=== PATIENT | female | born 1940 | race Caucasian/White ===

== ENCOUNTER → 2016-12-05 | Outpatient (CLI) | payer OTHER ==
[2016-12-05 09:54] LABS: ASPARTATE AMINO TRANSFERASE 32 IU/L (8-39); BILIRUBIN,TOTAL 0.5 mg/dL (0.3-1.2); BLOOD UREA NITROGEN 17 mg/dL (7-22); CHLORIDE 100 meq/L (98-112); CREATININE 0.4 mg/dL (0.50-1.20); GLUCOSE 80 mg/dL (78-110); POTASSIUM 3.8 meq/L (3.8-5.2); SODIUM 140 meq/L (135-145); TOTAL PROTEIN 5.6 g/dL (6.1-8.0)
[2016-12-05 10:03] LABS: BASOPHILS # (AUTO) 0.01 10*3/UL; BASOPHILS % (AUTO) 0.3 % (0-1); EOSINOPHILS % (AUTO) 3.7 % (0-8); HEMATOCRIT 38.3 % (37.0-47.0); HEMOGLOBIN 12.7 g/dL (12.0-16.0); IMM GRAN % (AUTO) 0.3 % (0-5); IMM GRAN# (AUTO) 0.01 10*3/UL; LYMPHOCYTES # (AUTO) 0.86 10*3/uL; LYMPHOCYTES % (AUTO) 24.7 % (10-50); MEAN CORPUSCULAR HEMOGLOBIN 36.7 PG (27-31); MEAN CORPUSCULAR HGB CONC 33.2 g/dL (33-37); MEAN PLATELET VOLUME 9.1 FL (7.4-12.2); MONOCYTES # (AUTO) 0.37 10*3/UL (0.3-0.8); MONOCYTES % (AUTO) 10.6 % (5-15); NEUTROPHILS % (AUTO) 60.4 % (50-80); RDW COEFFICIENT OF VARIATION 14.5 % (11.5-14.5); RED BLOOD COUNT 3.46 10^6/uL (4.20-5.40); WHITE BLOOD COUNT 3.48 10^3/uL (4.8-10.8)
[2016-12-05 10:13] LABS: PLATELET MORPHOLOGY COMMENT NORMAL MORPHOLOGY (NORM)
== END ==
LOC: MOB LAB 08:21
PROVIDERS: ATTEND Psychiatry & Neurology Neurology
DX: G62.2 Polyneuropathy due to other toxic agents (principal); T65.91XA Toxic effect of unspecified substance, accidental (unintentional), initial encounter
CPT/HCPCS: 36415; 80053; 85025

== ENCOUNTER → 2016-12-17 | Outpatient (CLI) | payer OTHER | LOC: MMPC 10:00 | PROVIDERS: ATTEND Podiatrist Foot & Ankle Surgery | DX: L03.032 Cellulitis of left toe (principal); L03.031 Cellulitis of right toe; M20.5X1 Other deformities of toe(s) (acquired), right foot; M20.21 Hallux rigidus, right foot; S90.811A Abrasion, right foot, initial encounter; L60.3 Nail dystrophy; L60.0 Ingrowing nail; R60.0 Localized edema; M20.22 Hallux rigidus, left foot; M20.5X2 Other deformities of toe(s) (acquired), left foot; S90.812A Abrasion, left foot, initial encounter; L60.9 Nail disorder, unspecified | CPT/HCPCS: 11755 ×2; 99213; G0463 ==

== ENCOUNTER → 2017-01-13 | Outpatient (CLI) | payer OTHER ==
[2017-01-13 15:09] LABS: BASOPHILS # (AUTO) 0.02 10*3/UL; BASOPHILS % (AUTO) 0.4 % (0-1); EOSINOPHILS % (AUTO) 1.8 % (0-8); HEMATOCRIT 44.1 % (37.0-47.0); HEMOGLOBIN 14.4 g/dL (12.0-16.0); IMM GRAN % (AUTO) 0.6 % (0-5); IMM GRAN# (AUTO) 0.03 10*3/UL; LYMPHOCYTES # (AUTO) 0.93 10*3/uL; LYMPHOCYTES % (AUTO) 18.8 % (10-50); MEAN CORPUSCULAR HEMOGLOBIN 36.1 PG (27-31); MEAN CORPUSCULAR HGB CONC 32.7 g/dL (33-37); MEAN PLATELET VOLUME 8.8 FL (7.4-12.2); MONOCYTES # (AUTO) 0.47 10*3/UL (0.3-0.8); MONOCYTES % (AUTO) 9.5 % (5-15); NEUTROPHILS # (AUTO) 3.42 10*3/UL; NEUTROPHILS % (AUTO) 68.9 % (50-80); RDW COEFFICIENT OF VARIATION 14.1 % (11.5-14.5); RED BLOOD COUNT 3.99 10^6/uL (4.20-5.40); WHITE BLOOD COUNT 4.96 10^3/uL (4.8-10.8)
[2017-01-13 15:10] LABS: BILIRUBIN,TOTAL 0.5 mg/dL (0.3-1.2); C-REACTIVE PROTEIN 1.1 mg/dL (0.0-0.9); CREATININE 0.5 mg/dL (0.50-1.20); POTASSIUM 3.8 meq/L (3.8-5.2); TOTAL PROTEIN 7.1 g/dL (6.1-8.0)
[2017-01-13 15:35] LABS: PLATELET MORPHOLOGY COMMENT NORMAL MORPHOLOGY (NORM)
[2017-01-13 15:47] LABS: ERYTHROCYTE SEDIMENTATION RATE 16 MM/HR (0-20)
--- NOTE | 2017-01-13 22:04 | DI ---
CT ANGIOGRAM OF THE AORTA WITH RUNOFF, 01/13/2017 2:40 PM : Clinical History: Embolic disease of the toe. Previous Exam: None at this facility. Scans are performed from T9 to the feet following IV administration of 130 mL of Isovue 300 followed by a saline bolus. Proprietary automated bolus tracking software was not used to verify the timing of the injection. 3D MIPS and volume rendering post processing of the data was performed. The abdominal aorta and the renal arteries show no significant plaque disease. The common, external, and left internal iliac arteries also show no significant plaque disease. Approximately 2 cm distal t o the bifurcation of the right common iliac artery into the internal and external iliac arteries is a linear lucency in the proximal external iliac artery. This linear lucency extends for an additional length of approximately 3 cm where it disappears. The pattern is quite suggestive of a short length d issection with creation of a false lumen of equal caliber to the true lumen with reentry 3 cm from th e origin of the presumed dissection. The distal portions of both external iliac arteries to the commo n femoral arteries, then further to the popliteal arteries show no significant occlusive disease. Bel ow the knees, the vessels branch in normal fashion to form the anterior and posterior tibial arteries and the peroneal arteries. More extensive nonocclusive plaque disease is present in the right mastic man ior tibial artery from its origin to below the right ankle joint. The right anterior tibial artery sh ows no significant occlusive plaque disease to the ankle joint. The right peroneal artery is occluded in the midportion of the right lower leg. The right dorsalis pedis artery is visualized to the toes of the first and second rays along with branches to the third and fourth toes. No significant vessel filling is noted in the distal branches of the posterior tibial artery below the right ankle joint. T he left peroneal artery is occluded in the distal third of the lower leg. Non-occlusive plaquing is p resent throughout the left posterior tibial artery into branches supplying the plantar aspect of the foot. No significant occlusive disease is seen in the left anterior tibial artery or in the dorsalis pedis artery and its branches to the toes. There is severe osteoporosis with vertebral plasties present at L1 and S1 as well as compression frac tures at T11 and T12. The liver, adrenal glands, spleen, pancreas, and both kidneys are normal. There is no ascites or adenopathy. READIN. Just distal to the takeoff of the right external iliac artery is a linear lucency in the lumen co nsistent with a localized dissection with a length of approximately 3 cm in demonstration of a false lumen that shows reentry into the true lumen. The runoff from the aorta to the ankles bilaterally are otherwise normal with the exception that the peroneal arteries bilaterally terminate well above the ankle joints. 2. There is flow through the dorsalis pedis artery and branches of the posterior tibial artery of th e left foot all the way to the toes. The posterior tibial artery on the right side terminates just be low the ankle joint and only very small branches are visualized. The right dorsalis pedis artery is v isualized to branches to the first through fourth toes. 3. Severe osteoporosis with vertebral plasties at L1 and S1 and additional compression fractures at T11 and T12.
== END ==
LOC: MOB LAB 13:41
PROVIDERS: ATTEND Internal Medicine
DX: I74.3 Embolism and thrombosis of arteries of the lower extremities (principal); I10 Essential (primary) hypertension; I34.0 Nonrheumatic mitral (valve) insufficiency; L97.529 Non-pressure chronic ulcer of other part of left foot with unspecified severity
CPT/HCPCS: 36415; 75635; 80053; 85025; 85652; 86140; 87070; 87077; 87186; 87205

== ENCOUNTER → 2017-02-02 | Outpatient (CLI) | payer OTHER ==
[2017-02-02 16:21] LABS: BASOPHILS # (AUTO) 0.01 10*3/UL; BASOPHILS % (AUTO) 0.2 % (0-1); EOSINOPHILS # (AUTO) 0.07 10*3/UL; EOSINOPHILS % (AUTO) 1.1 % (0-8); HEMATOCRIT 42.5 % (37.0-47.0); LYMPHOCYTES # (AUTO) 0.85 10*3/uL; MEAN CORPUSCULAR HEMOGLOBIN 35.6 PG (27-31); MEAN CORPUSCULAR HGB CONC 32.9 g/dL (33-37); MEAN PLATELET VOLUME 9.4 FL (7.4-12.2); MONOCYTES # (AUTO) 0.54 10*3/UL (0.3-0.8); MONOCYTES % (AUTO) 8.1 % (5-15); NEUTROPHILS # (AUTO) 5.17 10*3/UL; NEUTROPHILS % (AUTO) 77.5 % (50-80); RED BLOOD COUNT 3.93 10^6/uL (4.20-5.40)
[2017-02-02 16:24] LABS: PLATELET MORPHOLOGY COMMENT NORMAL MORPHOLOGY (NORM); RBC MORPHOLOGY COMMENT NORMAL MORPHOLOGY (NORM); WBC MORPHOLOGY COMMENT NORMAL MORPHOLOGY (NORM)
[2017-02-02 16:25] LABS: BLOOD UREA NITROGEN 17 mg/dL (7-22); CALCIUM 8.6 mg/dL (8.7-10.7); LIPASE 35 IU/L (23-300); SERUM ALBUMIN 3.7 g/dL (3.5-4.8)
== END ==
LOC: MOB LAB 13:30
PROVIDERS: ATTEND Internal Medicine
DX: R10.12 Left upper quadrant pain (principal); R11.2 Nausea with vomiting, unspecified
CPT/HCPCS: 36415; 80053; 82150; 83690; 85025

== ENCOUNTER → 2017-02-03 | Outpatient (CLI) | payer OTHER ==
--- NOTE | 2017-02-03 16:11 | DI ---
XR ABDOMEN KUB UPRIGHT,02/03/2017 1:55 PM: Clinical History: Right upper quadrant abdominal pain. Previous Exam: None at this facility. Findings: Upright and supine views of the abdomen are obtained, and demonstrate postsurgical changes consistent with prior vertebroplasty. There is also methyl methacrylate within the sacrum. Dystrophic calcifications are noted in the regions of the ribs. Moderate stool seen throughout the colon. The lung bases are clear. Impression: A nonobstructive, nonspecific bowel gas pattern.
== END ==
LOC: RAD 14:15
PROVIDERS: ATTEND Surgery
DX: R10.11 Right upper quadrant pain (principal)
CPT/HCPCS: 74020

== ENCOUNTER → 2017-02-05 | Outpatient (CLI) | payer OTHER | LOC: MMPC 11:11 | PROVIDERS: ATTEND Surgery | DX: R10.11 Right upper quadrant pain (principal) | CPT/HCPCS: 99213; G0463 ==

== ENCOUNTER → 2017-02-10 | Outpatient (CLI) | payer OTHER | LOC: MOB LAB 12:42 | PROVIDERS: ATTEND Psychiatry & Neurology Neurology | DX: G62.2 Polyneuropathy due to other toxic agents (principal) | CPT/HCPCS: 36415; 82607; 82746 ==

== ENCOUNTER → 2017-02-20 | Outpatient (CLI) | payer OTHER ==
[2017-02-20 13:46] LABS: BLOOD UREA NITROGEN 15 mg/dL (7-22); CALCIUM 8.6 mg/dL (8.7-10.7)
== END ==
LOC: MOB LAB 12:25
PROVIDERS: ATTEND Internal Medicine
DX: E87.1 Hypo-osmolality and hyponatremia (principal)
CPT/HCPCS: 80048

== ENCOUNTER → 2017-03-02 | Outpatient (CLI) | payer OTHER | LOC: EKG 14:21 | PROVIDERS: ATTEND Orthopaedic Surgery | DX: Z22.322 Carrier or suspected carrier of Methicillin resistant Staphylococcus aureus (principal) | CPT/HCPCS: 87641 ==

== ENCOUNTER 2017-03-03 06:03 | Day surgery (SDC) | payer OTHER ==
[2017-03-03] MEDS ORDERED: ceFAZolin Inj 2gm (Premix) 50 ML IV ONE (06:10)
[2017-03-03] MEDS ORDERED: LIDOCAINE W/ SODIUM BICARB 0.5 ML SYR ONE (06:10)
[2017-03-03] MEDS ORDERED: Lactated Ringers 1,000 ML PRIMARY IV ONE (06:10)
[2017-03-03] MEDS ORDERED: BUPivacaine Inj 0.25% PF - 10ml vial ONE ×2 (06:52→07:34)
[2017-03-03] MEDS ORDERED: MIDAZOLAM 5 MG/1 ML ONE (07:19)
[2017-03-03] MEDS ORDERED: fentaNYL Inj 100 MCG/2 ML VIAL ONE (07:19)
[2017-03-03] MEDS ORDERED: BETAMET ACET/BETAMET NA PH 6 MG/1 ML - 5 ML ONE (07:34)
[2017-03-03] MEDS ORDERED: BETAMET ACET/BETAMET NA PH 6 MG/1 ML - 5 ML IAC ONE (08:00)
[2017-03-03 10:10] VITALS: RESP 29; TEMP 97.7
== END 2017-03-03 09:26 | disposition home or self-care (01) ==
LOC: SDSC 06:03
PROVIDERS: ATTEND Orthopaedic Surgery
DX: T84.84XA Pain due to internal orthopedic prosthetic devices, implants and grafts, initial encounter (principal); M19.011 Primary osteoarthritis, right shoulder
CPT/HCPCS: 20610; 20680; J0690; J0702; J2704; J3010; J2250; J7120

== ENCOUNTER → 2017-03-06 | Outpatient (CLI) | payer OTHER | LOC: MMPC 11:11 | PROVIDERS: ATTEND Internal Medicine | DX: I10 Essential (primary) hypertension (principal); I34.0 Nonrheumatic mitral (valve) insufficiency; G62.9 Polyneuropathy, unspecified; I48.0 Paroxysmal atrial fibrillation; K59.00 Constipation, unspecified; Z93.59 Other cystostomy status; L98.9 Disorder of the skin and subcutaneous tissue, unspecified | CPT/HCPCS: 17110 ×2; 99214; G0463 ==

== ENCOUNTER 2017-03-21 18:56 | Emergency (ER) | payer OTHER ==
[2017-03-21] MEDS ORDERED: CEPHALEXIN 500 MG CAPSULE PO ONE (19:02)
--- NOTE | 2017-03-21 19:07 | PDOC ---
Lower Extremity Injury HPI - General Chief Complaint: Lower Extremity Problem/Injury Stated Complaint: LACERATION TO LEFT LEG Date Seen by Provider: 03/21/17 Time Seen by Provider: 19:03 Source: POSITIVE: Patient Exam Limitations: POSITIVE: No limitations Nurse's Notes Reviewed & Considered: Yes - History of Present Illness Initial Comments: Patient comes in today with a chief complaint of laceration left lower anterior tibial region. Patient was scratched by her dog earlier today. A series of Steri-Strips were applied after the wound was cleaned with alcohol. Wound was then bandaged with gauze and Coban and. Patient was on her feet for a concert and then came in because she was having increased bleeding. Family members accompany her and provided detailed information. Patient denies any headache, chest pain, shortness of breath. No fever chills or sweats. No nausea vomiting or diarrhea. No body aches, no rashes. Have you received a tetanus shot in the past 10 years?: Unknown Body Location Affected: REPORTS: Lower Extremity (L) Timing: REPORTS: Abrupt Duration: <24 hours Severity: Moderate Quality: REPORTS: "Pain", Stabbing, Throbbing Location at Time of Onset: REPORTS: Home Context of Injury: REPORTS: Other (Scratched by a dog) Location of Injury: REPORTS: Leg (L) Modifying Factors: improves with: Walking, Rest Any Prior Injuries Related to Current Complaint?: No - Patient Home Medications Home Medications: Home Medications Calcium 600 + Vit D 400 Caplet 1 each PO BID 09/17/11 Vitamin B Complex 1 each PO DAILY 09/17/11 Aspirin [Aspirin EC] 81 mg PO DAILY tab 08/08/14 Acetaminophen [Tylenol] 1 - 2 tab PO Q4-6H PRN tab 03/16/15 Omeprazole 1 cap PO BID #180 cap 05/20/16 Divalproex Sodium [Depakote Er] 1 tab PO DAILY #90 tab 05/29/16 Tiotropium [place] [Spiriva Respimat] 2 puff INH QD #3 inh 05/29/16 Amiodarone HCl 200 mg PO QD #90 tab 05/30/16 Azathioprine [Imuran] 2 tab PO BID #360 tab 05/30/16 Levothyroxine Sodium 1 tab PO QAM #30 tab 10/27/16 Melatonin 10 mg PO DAILY PRN tab 10/27/16 Acyclovir [Zovirax] 1 tab PO BID #180 tab 12/01/16 Furosemide 1 tab PO QD #90 tab 01/06/17 Potassium Chloride 1 cap PO QD #90 cap 01/12/17 Gabapentin 3 cap PO BID #630 cap 03/06/17 Memantine HCl [Namenda] 10 mg PO BID #60 tab 03/06/17 Suvorexant [Belsomra] 1 tab PO QHS PRN #90 tab 03/06/17 - Patient Allergies Allergies/Adverse Reactions: Allergies Allergy/AdvReac Type Severity Reaction Status Date / Time codeine [Codeine] Allergy Intermediate VOMITING Verified 03/03/17 06:29 trimethobenzamide HCl Allergy Intermediate jaw locking Verified 03/03/17 06:29 [From Tigan] morphine AdvReac Mild NOT Verified 03/03/17 06:29 APPLICABLE Past Medical History - heen HEENT History: Blindness, Hard of Hearing Additional HEENT History: HEARING LOSS IN LEFT EAR, right EYE BLIND Cardiovascular History: Hypertension, Arrhythmia, Valvular Heart Disease Additional Cardiovasular History: Paroxysmal Atrial fibrillation/ Severe TRICUSPID AND MITRAL VALVE REGURGITATION--mitral valve prolapse Respiratory History: Asthma, COPD, Emphysema, Other (please comment) Additional Respiratory History: PULMONARY HYPERTENSION secondary to valvular heart disease, mild central lobular emphysema Gastrointestinal History: Diverticulitis, Peptic Ulcer Disease, Gallbladder Disease Additional Gastrointestinal History: CHOLECYSTECTOMY, APPENDECTOMY, TONSILLECTOMY, DUODENAL PERF, 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 APPOINTMENT WILL BE ARRANGED. 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 Blood Disorders: Anemia Psychiatric History: Depression, PTSD Additional Psychiatric History: per daugther History of Sexually Transmitted Diseases: Yes (HSV) Cancer History: Denies History History of MDRO: Yes Other Type of MDRO: PER NASAL SWAB History of Other Communicable Diseases: No Alcohol Use: Rarely Substance Use Type: None Previous Surgical History: Yes Type / Date of Surgery: kaipho procedure/CATARACT EXT/ ALLISON/ COLONOSCOPY/ EGD/ REPAIR OF PERF ULCER/ REMOVAL OF CHOLESTEATOMA LEFT EAR, LEFT EYE SURGERIES IN CHILDHOOD, T&A AND APPENDECTOMY, [facility], MULTIPLE SURGERY TO TOES, [id number] FUSION/R FOOT Anesthesia Reactions: No Malignant Hyperthermia: No Significant Family History: No pertinent family hx ROS - Limitations ROS Limitations: No Limitations Constitution: REPORTS: Denies Symptoms Cardiovascular: REPORTS: Denies Cardiac Symptoms Respiratory: REPORTS: Denies Resp Symptoms Neurological: REPORTS: Denies Neuro Symptoms Gastrointestinal: REPORTS: Denies GI Symptoms Endocrine: REPORTS: Denies Symptoms Musculoskeletal: REPORTS: Denies MS Symptoms Genitourinary: REPORTS: Denies Symptoms Eyes: REPORTS: Denies Symptoms Skin: REPORTS: Other (Laceration distal anterior tibial region.) Lympathic: REPORTS: Denies Lympathic Symptoms Immunologic: POSITIVE: Denies Symptoms Psychiatric: POSITIVE: Denies Psych Symptoms Lower Ext Complaint Exam - General Appearance General Appearance: POSITIVE: Alert, Cooperative, No Acute Distress - Extremities Lower Extremity: POSITIVE: Non-Tender, Normal ROM, Normal Color, Normal Temperature, Other (Laceration with venous bleeding present. Laceration is approximately 3-1/2 cm.) Gait: POSITIVE: Normal Neurovascular/Tendon: POSITIVE: Sensation Normal, Motor Normal, No Vascular Compromise Skin: POSITIVE: Warm, Dry, Laceration - HEENT HEENT: POSITIVE: Head Inspection Nml, Eyes Inspection Nml, Ears Inspection Nml, Nose Inspection Nml, PERRL, EOMI - Neck / Back Neck/Back: POSITIVE: Normal Inspection - Respiratory / CVS Respiratory / CVS: POSITIVE: No Respiratory Distress - Abdomen Abdomen: Denies Tenderness: (All Quadrants) Procedures - Laceration/Wound Repair Did patient have a laceration repair: Yes Site of Laceration/Wound: Anterior distal tibial region. Wound Length (cm): -35 Wound's Depth, Shape: Into subcutaneous tissue Distal CMS: Yes Skin Prep: Other (Irrigated copiously with normal saline) Irrigated w/ Saline (mL): 50 Wound Explored: No foreign body removed Wound Debrided: Minimal Wound Repaired With: Steri-strips Layer Closure?: No Drain Placement: No Sterile Dressing Applied?: Yes Splint Applied?: No Sling Applied?: No Procedure Note:: After obtaining informed verbal consent, patient had her wound irrigated copiously with normal saline. A total of 50 mL were utilized. There is a small area of venous bleeding on the inferior portion of the wound. Surgicel was placed into the wound and pressure was applied. Then Mastisol was applied to the wound edges and half-inch Steri-Strips were placed across and up dressing of Adaptic and 4 x 4's for pressure were applied with Coban. Patient tolerated this well. She received Keflex. She is current on her tetanus. Lower Ext Complaint Progress - Results Reviewed by me Lab Results Reviewed: Yes Lab Results:: Laboratory Results 03/21/17 Range/Units 19:25 WBC 3.96 L (4.8-10.8) 10^3/uL RBC 3.71 L (4.20-5.40) 10^6/uL Hgb 13.9 (12.0-16.0) g/dL Hct 40.7 (37.0-47.0) % MCV 109.7 H (81-99) FL MCH 37.5 H (27-31) PG MCHC 34.2 (33-37) g/dL RDW Std Deviation 56.8 H (39-50) fL RDW Coeff of Yaakov 14.7 H (11.5-14.5) % Plt Count 196 (140-350) 10*3/uL MPV 9.1 (7.4-12.2) FL Immature Gran % (Auto) 0.5 (0-5) % Neut % (Auto) 62.4 (50-80) % Lymph % (Auto) 24.7 (10-50) % [place] % (Auto) 10.4 (5-15) % Eos % (Auto) 1.5 (0-8) % Baso % (Auto) 0.5 (0-1) % Immature Gran # (Auto) 0.02 10*3/UL Neut # (Auto) 2.47 10*3/UL Lymph # (Auto) 0.98 10*3/uL [place] # (Auto) 0.41 (0.3-0.8) 10*3/UL Eos # (Auto) 0.06 10*3/UL Baso # (Auto) 0.02 10*3/UL WBC Morphology Comment Normal morphology (NORM) Plt Morphology Comment Normal morphology (NORM) RBC Morph Comment Normal morphology (NORM) PT 11.7 H (9.7-11.4) secs INR 1.13 (0.00-5.90) N/A Sodium 130 L (135-145) meq/L Potassium 3.7 L (3.8-5.2) meq/L Chloride 92 L (98-112) meq/L Carbon Dioxide 27 (23-33) meq/L Anion Gap 11 (5-20) BUN 15 (7-22) mg/dL Creatinine 0.4 L (0.50-1.20) mg/dL Estimated GFR [employer] BUN/Creatinine Ratio 37.50 H (6-20) Glucose 93 (78-110) mg/dL Calculated Osmolality 270.0 (267-292) mOsm/kg Calcium 8.6 L (8.7-10.7) mg/dL Total Bilirubin 1.1 (0.3-1.2) mg/dL AST 75 H (8-39) IU/L ALT 88 H (9-52) IU/L Alkaline Phosphatase 67 (38-126) IU/L Total Protein 6.6 (6.1-8.0) g/dL Albumin 3.6 (3.5-4.8) g/dL Globulin 2.9 (2.50-4.10) g/dL Albumin/Globulin Ratio 1.20 L (1.3-2.0) mg/g - Patient's Progress MDM / ED Course: Patient was examined. Wound was irrigated with normal saline. Surgicel was applied to venous bleeding on the distal portion of the wound. Adequate hemostasis was obtained. Mastisol was applied to the skin edges and half-inch Steri-Strips were applied. Adaptic was placed over the Steri-Strips with 2 x 2' s and Coban. Patient received Keflex here in the emergency department, she is current on her tetanus status. She is discharged home with a prescription for Keflex. Instructions are provided for wound care. Condition is instructions to follow-up with primary care physician and return here to the emergency room if there is increased bleeding, other concerns. - Consult Counseled: POSITIVE: Patient, Family, RE: DX, RE: Need for F/U Patient Care Time - Estimated PCT Patient Care Time (In Minutes): 45 Vital Signs - VS Reviewed Vital Signs Reviewed: Yes Discharge Clinical Impression: Laceration of lower extremity Discharge Disposition: Discharged to Home Condition: Stable Patient Instructions Given at Discharge: Laceration (ED)
[2017-03-21 19:28] LABS: BASOPHILS # (AUTO) 0.02 10*3/UL; BASOPHILS % (AUTO) 0.5 % (0-1); EOSINOPHILS # (AUTO) 0.06 10*3/UL; EOSINOPHILS % (AUTO) 1.5 % (0-8); HEMATOCRIT 40.7 % (37.0-47.0); HEMOGLOBIN 13.9 g/dL (12.0-16.0); LYMPHOCYTES # (AUTO) 0.98 10*3/uL; MEAN CORPUSCULAR HEMOGLOBIN 37.5 PG (27-31); MEAN CORPUSCULAR HGB CONC 34.2 g/dL (33-37); MEAN CORPUSCULAR VOLUME 109.7 FL (81-99); MEAN PLATELET VOLUME 9.1 FL (7.4-12.2); MONOCYTES # (AUTO) 0.41 10*3/UL (0.3-0.8); MONOCYTES % (AUTO) 10.4 % (5-15); NEUTROPHILS # (AUTO) 2.47 10*3/UL; NEUTROPHILS % (AUTO) 62.4 % (50-80); RED BLOOD COUNT 3.71 10^6/uL (4.20-5.40)
[2017-03-21 19:35] LABS: PLATELET MORPHOLOGY COMMENT NORMAL MORPHOLOGY (NORM); RBC MORPHOLOGY COMMENT NORMAL MORPHOLOGY (NORM); WBC MORPHOLOGY COMMENT NORMAL MORPHOLOGY (NORM)
[2017-03-21 19:36] LABS: BLOOD UREA NITROGEN 15 mg/dL (7-22); CALCIUM 8.6 mg/dL (8.7-10.7); SERUM ALBUMIN 3.6 g/dL (3.5-4.8)
[2017-03-21 20:32] VITALS: RESP 18; TEMP 97.3
== END 2017-03-21 19:54 | disposition home or self-care (01) ==
LOC: ER 18:56
DX: S81.812A Laceration without foreign body, left lower leg, initial encounter (principal); I10 Essential (primary) hypertension; W54.1XXA Struck by dog, initial encounter
CPT/HCPCS: 36415; 80053; 85025; 85610; 99282

== ENCOUNTER → 2017-03-31 | Outpatient (CLI) | payer OTHER | LOC: MMPC 11:11 | PROVIDERS: ATTEND Internal Medicine | DX: S81.812D Laceration without foreign body, left lower leg, subsequent encounter (principal); W54.8XXD Other contact with dog, subsequent encounter | CPT/HCPCS: 99213; G0463 ==

== ENCOUNTER → 2017-04-11 | Outpatient (CLI) | payer OTHER ==
[2017-04-11 20:45] LABS: BILIRUBIN,URINE NEGATIVE (NEG); CLARITY,URINE TURBID (CLEAR); COLOR,URINE YELLOW; GLUCOSE, URINE (UA) NEGATIVE (NEG); NITRATE,URINE NEGATIVE (NEG); OCCULT BLOOD,URINE LARGE (NEG); PROTEIN,URINE >300 mg/dl (NEG)
[2017-04-11 20:46] LABS: URINE SAMPLE TYPE CATH SPECIMEN
[2017-04-11 20:48] LABS: WBC,URINE >100
[2017-04-11 20:49] LABS: BACTERIA,URINE MANY; URINE CRYSTALS MODERATE
== END ==
LOC: LAB 20:34
PROVIDERS: ATTEND Urology
DX: N39.0 Urinary tract infection, site not specified (principal); N31.9 Neuromuscular dysfunction of bladder, unspecified; R82.99 Other abnormal findings in urine
CPT/HCPCS: 81001; 81003; 87077; 87088; 87186; 87205

== ENCOUNTER → 2017-05-26 | Outpatient (CLI) | payer OTHER ==
[2017-05-26 18:10] LABS: BILIRUBIN,URINE NEGATIVE (NEG); CLARITY,URINE CLEAR (CLEAR); COLOR,URINE YELLOW; GLUCOSE, URINE (UA) NEGATIVE (NEG); NITRATE,URINE NEGATIVE (NEG); OCCULT BLOOD,URINE MODERATE (NEG); PH,URINE 7.5 (5.0-8.5); PROTEIN,URINE 30 mg/dl (NEG)
[2017-05-26 18:22] LABS: BACTERIA,URINE MANY; URINE SAMPLE TYPE CATH SPECIMEN
== END ==
LOC: LAB 17:56
PROVIDERS: ATTEND Urology
DX: N39.0 Urinary tract infection, site not specified (principal); R82.99 Other abnormal findings in urine
CPT/HCPCS: 81001; 87077; 87088; 87186

== ENCOUNTER → 2017-06-10 | Outpatient (CLI) | payer OTHER ==
[2017-06-10 18:15] LABS: CALCIUM 9.1 mg/dL (8.7-10.7)
== END ==
LOC: LAB 17:53
PROVIDERS: ATTEND Internal Medicine
DX: M81.0 Age-related osteoporosis without current pathological fracture (principal)
CPT/HCPCS: 80048

== ENCOUNTER → 2017-06-11 | Outpatient (CLI) | payer OTHER | LOC: MOB RAD 13:58 | PROVIDERS: ATTEND Urology | DX: N39.0 Urinary tract infection, site not specified (principal); R82.99 Other abnormal findings in urine; M81.0 Age-related osteoporosis without current pathological fracture; I10 Essential (primary) hypertension; I48.0 Paroxysmal atrial fibrillation; K59.00 Constipation, unspecified; Z93.59 Other cystostomy status; G62.9 Polyneuropathy, unspecified | CPT/HCPCS: 74000; 99214; J0897 ==

== ENCOUNTER → 2017-06-23 | Outpatient (CLI) | payer OTHER ==
--- NOTE | 2017-06-23 23:23 | DI ---
CT BONE DENSITOMETRY OF THE SPINE AND HIP, 06/23/2017 10:53 AM : Clinical History: Long-term use of bisphosphonates. Previous Exam: January 13, [address] (QCT) Bone Mineral Densitometry: The [place] scans demonstrate post kyphoplasty of the lumbar spine. Low dose scans are obtained of th e lumbar spine and sampling is obtained through the midbodies of L2 and L3. The average volumetric jeremías ne mineral density (BMD) of the lumbar spine is 78.9 mg/cm3. This value corresponds to a volumetric T -score of -4.3 and Z-score of -0.8 as assessed by this BMD software. Volumetric 3D QCT and areal DEXA T-scores and Z-scores are not directly equivalent. Using the [employer]'s (ACR) v olumetric QCT trabecular spine BMD conversion table that is closely equivalent to the areal WHO diagn ostic categories, this patient falls into the category of osteoporosis. CT X-Ray Absorptiometry (CTXA) Hip Bone Mineral Densitometry: Low dose scans are obtained through the hips for assessment of bone mineral density (BMD) and T-score s and Z-scores of the left hip. Total hip BMD: 0.446 mg/cm2 T-score: -4.1 Z-score: -1.96 Femoral neck BMD: 0.511 mg/cm2 T-score: -2.6 Z-score: -0.8 Note: T-scores of the spine and hip exhibit discordant readings approximately 40% of the time in eval uated patients. Changes in BMD determined either by volumetric QCT or areal DEXA are more reliable in assessment of change in a patient's BMD status rather than changes in T-scores. The CTXA hip CT bone mineral density measurements and the resultant T-scores and Z-scores are exact hip DEXA scan equival ents. The femoral neck T-score can be used in the WHO's FRAX program for assessing an untreated patie nt's 10 year fracture risk. READING: Osteoporosis of the lumbar spine and left hip.
== END ==
LOC: CT 10:39
PROVIDERS: ATTEND Internal Medicine
DX: M81.0 Age-related osteoporosis without current pathological fracture (principal); Z79.83 Long term (current) use of bisphosphonates
CPT/HCPCS: 77078

== ENCOUNTER 2018-01-22 06:00 | Observation (INO) ==
[~2018-01-22 06:00] MED LIST: BUPivacaine Liposome/PF (Exparel) Inj 20ml vial INFIL ONE; LIDOCAINE W/ SODIUM BICARB 0.5 ML SYR ONE; LIDOCAINE W/ SODIUM BICARB 0.5 ML SYR SUBD ONE; Lactated Ringers 1,000 ML PRIMARY IV ONE; Lactated Ringers 1,000 ML PRIMARY IV SCH; cefTAZidime Inj 2 GM in Sodium Chloride 0.9% 100 ML IV ONE
[2018-01-22] MEDS ORDERED: BUPivacaine Inj 0.5% PF (5mg/ml) 10ml vial ONE ×2 (07:16→07:55)
[2018-01-22] MEDS ORDERED: MIDAZOLAM 5 MG/1 ML ONE (07:16)
[2018-01-22] MEDS ORDERED: LIDOCAINE 2%/ EPI 1:200,000 - 20 ML VIAL ONE (07:16)
[2018-01-22] MEDS ORDERED: fentaNYL Inj 100 MCG/2 ML VIAL ONE (07:16)
[2018-01-22] MEDS ORDERED: PROPOFOL 10 MG/1 ML (200 MG/20 ML) VIAL IV ONE ×2 (08:08→08:47)
--- NOTE | 2018-01-22 08:24 | CRNA.PROCE ---
Nerve Block Documentation - - Safety Measures: Time Out Taken, Site Verified - - Type of Nerve Block Used: Right Popliteal Fossa Block (Right Foot Kellers Bunionectomy) Position for Nerve Block: Prone Moniters Used During Block: SPO2, NIBP Oxygen Supplemented: Yes Sedation Used - Enter Amount in Comment Field [ANES.SEDAT]: Midazolam (mg): Yes (2mg), Fentanyl (mcg): Yes (50mcg) Skin Prep Used: ChloroPrep Technique: Nerve Stimulator Nerve Block Needle Used: 80 mm ProBlk II Stimulation Hz: 1.0 Stimulation Staring mA: 1.4 Stimulation Ending mA: 1.0 Local Anesthetic - Enter Amt in Comment Field [ANES.LOCNB]: 0.5 % Bupivacaine Plain (mL): Yes (20ml), 2 % Xylocaine with Epinephrine 1:200,000 (mL): Yes (20ml ) - - PreOp Block : Time In: 07:30 PreOp Block : Time Out: 07:40 Anesthesia Time - Other Weight: 58.967 kg Height: 5 ft 5 in Body Mass Index (BMI): 21.6
[2018-01-22] MEDS ORDERED: BUPivacaine Liposome/PF (Exparel) Inj 20ml vial INFIL ONE (08:35)
[2018-01-22] MEDS ORDERED: NORMAL SALINE 10 ML SYRINGE FLUSH IVP PRN ×2 (09:16→11:22)
--- NOTE | 2018-01-22 09:22 | CRNA.PROGR ---
Anesthesia Time - - Start date: 01/22/18 End date: 01/22/18 - Procedure/Recovery Time Anesthesia : Time In: 07:59 Anesthesia : Time Out: 09:18 Anesthesia : Total Time: 79 - Block Time PreOp Block : Time In: 07:30 PreOp Block : Time Out: 07:40 PreOp Block : Total Time: 10 - Total Anesthesia Time Total Anesthesia Time (minutes): 89 - Other Weight: 58.967 kg Height: 5 ft 5 in Body Mass Index (BMI): 21.6 Physical Status: P3 Anesthesia Type: Popliteal Fossa Block
--- NOTE | 2018-01-22 09:22 | CRNA.PROGR ---
Post Anesthesia Phase II - Post Anesthesia Phase II Patient Stable and Discharged To: Phase II Care Assumed By Surgeon: Aly Schmitt DPM Temperature: 98.9 F Pulse Rate: 65 Respiratory Rate: 18 Blood Pressure: 145/92 Pulse Ox: 94 Total Anabela Score at Discharge: 9 Post Anesthesia Discharge Criteria Met: Yes
--- NOTE | 2018-01-22 09:31 | GEN.OPNOTE ---
Operative Report Surgeon: Aly Schmitt DPM Senior Net Programmer: Other (Godfrey Avalos DPM) Anesthesia Type: Regional (right popliteal block), Local (with local exparel.), MAC Anesthesia Provider: Herve Briones CRNA Surgery Date: 01/22/18 Preoperative Diagnosis: 1. Right foot pain. 2. Right hallux valgus. Postoperative Diagnosis: 1. Right foot pain. 2. Right hallux valgus. 3. Right chronic abrasion ulceration IPJ. Procedure: 1. Modified Ramirez bunion arthroplasty. Estimated Blood Loss (mL): 20 (pneumatic cuff to the right ankle at 250 mmHg pressure for a total time of 3 minutes.) Fluids: 2 g Ceftazidime. 600 mL lactated Ringer's Complications: None Findings at Surgery: The remaining of the case it was noted that a ankle tourniquet would not work. It became a venous cuff. And so was released at 3 minutes. The surgery was then continued in performed without a tourniquet. Indications for the Procedure: Ongoing pain of the right great toe and metatarsophalangeal joint capsule. As well as a chronic abrasion ulceration of the right great interphalangeal joint dorsal medially. Description of Procedure: The patient was brought to the operating room and placed in the supine position. They had already been given a popliteal block of the lower extremity , and MAC was continued. The foot was prepped and draped in the usual sterile fashion. A timeout was performed. A preoperative C-arm radiograph was reviewed to help delineate the area of concern, and this was marked on the foot. The foot was then exsanguinated with an elastic Esmarch, after which a pneumatic cuff was inflated about the ankle to 250 mmHg pressure. A dorsal incision just medial to the extensor hallucis longest tendon was then made from the proximal phalanx back to the right first metatarsal head. This is noted to bleed and bruise even with use of a Bovie. And although no major minor vasculature injury, although it edges continue to use. I then released the ankle tourniquet, at which time the bleeding resolved almost immediately. Dissection continued through the periosteum and joint capsule. This was also incised longitudinally. And then the periosteum and joint capsule was reflected from the base of the proximal phalanx. The dorsal medial lateral aspects of the joint capsule were able to be reflected. A bone saw was then used to make the osteotomy in the base of the proximal phalanx. After this was made through and through a bone rongeur was used to remove the base of the proximal phalanx. The plantar aspect of the base was then carefully freed from it's attachments to the joint capsule and flexor tendon. After all bone had been removed, the great toe was reduced and its contracted state back to more rectus position. Was noted at the interphalangeal joint was still and rigid semi-plantar flexion. Having noted previously the left great toe which had had a Ramirez arthroplasty, the left great toe injury up with a metatarsal phalangeal joint fusion, and so this will be likely with the right as well over time. Considering that she is not active. The wound was irrigated. Express was injected throughout all layers of the surrounding tissues. The joint capsule was then tightened medially to keep the great toe straight after which the joint capsule was closed around the arthroplasty with 2-0 Vicryl. 4-0 Vicryl was then used for subcutaneous closure. And the skin was closed with 4- 0 nylon. A dressing was then applied which consisted of Mastisol and Steri-Strips gently applied, Xeroform gauze, fluffs, Kerlix, and Coban. Ryanne will be sent to 23 hour observation to receive her next 2 doses of Ceftazadime IV q-8-h. she tolerated the procedure well, no complications, and follow-up will be as previously scheduled upon release.
[2018-01-22] MEDS ORDERED: CALCIUM CARBONATE 500 MG (TUMS) CHEWABLE TABLET PO PRN (11:22)
[2018-01-22] MEDS ORDERED: DOCUSATE 100 MG CAPSULE PO PRN (11:22)
[2018-01-22] MEDS ORDERED: ONDANSETRON 4 MG/2 ML VIAL IVP PRN (11:22)
[2018-01-22] MEDS ORDERED: ACETAMINOPHEN 325 MG TABLET PO PRN ×2 (11:22→11:24)
[2018-01-22] MEDS ORDERED: LIDOCAINE W/ SODIUM BICARB 0.5 ML SYR SUBD PRN (11:22)
[2018-01-22] MEDS ORDERED: FUROSEMIDE 20 MG PO PRN (11:24)
[2018-01-22] MEDS ORDERED: HYDROcodone-APAP 7.5 MG-325 MG TABLET PO PRN (11:24)
[2018-01-22] MEDS ORDERED: FERROUS SULFATE 324 MG PO SCH (11:30)
[2018-01-22] MEDS ORDERED: Lactated Ringers 1,000 ML PRIMARY IV SCH (11:30)
[2018-01-22] MEDS ORDERED: AMIODARONE 200 MG TABLET PO SCH (11:30)
[2018-01-22] MEDS ORDERED: POLYETHYLENE GLYCOL 17 GM PO SCH (11:30)
[2018-01-22] MEDS ORDERED: CHOLECALCIFEROL 2000 UNIT PO SCH (11:30)
[2018-01-22] MEDS ORDERED: LEVOTHYROXINE SODIUM PO SCH (11:30)
--- NOTE | 2018-01-22 11:32 | PDOC ---
HPI - History of Present Illness History of Present Illness: This very nice patient who comes in today for a right toe surgeryallux valgus I was asked by Dr. Schmitt to admit the patient in observation because infectious disease recommended 2 doses of IV antibiotics secondary to her chronic UTI infections she will be getting one dose of 4 PM 1 dose at midnight and that her daughter will be taken at home she is doing well has no complaints her caregiver is next to her bed no nausea no vomiting no chest pain. This will also function as my discharge summary since it is a observation same day admit and discharge Past Medical History Medical History: 1. Atrial fibrillation, chronic intermittent with failed cardioversion. The patient is currently on amiodarone and she has been taken off of anticoagulants and placed on aspirin. 2. Osteoporosis with thoracic compression fractures, and recent L1 fracture. 3. Pulmonary hypertension. 4. Valvular heart disease with mitral valve regurgitation. 5. Autoimmune vasculitic neuropathy. 6. Cerebral vascular disease, small vessel disease, by imaging studies in the past. 7. GERD. 8. Asthma. 9. History of a cataract. 10. Arthritis. 11. Frequent falls to her daughter's history. 12. History of colitis x2, most recently in January of 2015. 13. History of cellulitis. 14. Emphysema Surgical History: 1. Cataract extraction. 2. Cholecystectomy. 3. Colonoscopy. 4. Upper endoscopy. 5. Repair of perforated ulcer. 6. Cholesteatoma of the left ear removed Pertinent Family History: Family history is unknown as patient grew up in foster care Past Social History: Prior history of smoking. . 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 Has children. Minimal alcohol intake. Patient really been walking until her has reportedly been walking until her fall in [place]. She was wheelchair-bound at one point, but this has improved. Tobacco Use: Never Smoker In the Past 12 Months, Have Used or Abuse Any of the Following Substance: None Medication / Allergies Home Medications: Home Medications 3 Medication Instructions Recorded Confirmed Type Calcium 600 + Vit D 400 Caplet 1 ea PO BID 09/17/11 01/22/18 History Vitamin B Complex 1 ea PO DAILY 09/17/11 01/22/18 History Aspirin [Aspirin EC] 81 mg PO DAILY tab 08/08/14 01/22/18 History Acetaminophen [Tylenol] 1 - 2 tab PO Q4-6H PRN tab 03/16/15 01/22/18 History Tiotropium Crane [Spiriva 2 puff INH QD #3 inh 05/29/16 01/22/18 History Respimat] Levothyroxine Sodium 1 tab PO QAM #30 tab 10/27/16 01/22/18 History Melatonin 10 mg PO DAILY PRN tab 10/27/16 01/22/18 History Gabapentin 3 cap PO BID #630 cap 03/06/17 01/22/18 Rx Furosemide 1 tab PO QD PRN #90 tab 03/31/17 01/22/18 History Omeprazole 1 cap PO BID #180 cap 05/18/17 01/22/18 Rx Memantine HCl [Namenda] 10 mg PO BID #60 tab 06/26/17 01/22/18 Rx acyclovir 400 mg tablet 400 mg PO BID #180 tab 08/06/17 01/22/18 Rx duloxetine 30 mg capsule,delayed 30 mg PO QDAY #90 cap 08/07/17 01/22/18 Rx release cholecalciferol (vitamin D3) 2,000 2,000 unit PO QDAY #30 cap 08/10/17 01/22/18 Rx unit capsule ferrous sulfate 324 mg (65 mg 324 mg PO QDAY #30 tab 08/10/17 01/22/18 Rx iron) tablet,delayed release inulin 2 gram chewable tablet 4 g PO BID #120 tab 08/10/17 01/22/18 Rx oxybutynin chloride ER 10 mg 10 mg PO .qod #30 tab 08/10/17 01/22/18 Rx tablet,extended release 24 hr oxybutynin chloride ER 5 mg 5 mg PO .QOD #30 tab 08/10/17 01/22/18 Rx tablet,extended release 24 hr polyethylene glycol 3350 17 17 g PO QDAY #255 g 08/10/17 01/22/18 Rx gram/dose oral powder aloe vera 5,000 mg capsule 10,000 mg PO BID cap 09/18/17 01/22/18 History fluticasone 220 mcg/actuation HFA 2 puff INH BID g 09/18/17 01/22/18 History aerosol inhaler cephalexin 500 mg capsule See Label Instructions PO TID #21 10/15/17 01/22/18 Rx cap suvorexant 20 mg tablet 20 mg PO QHS PRN #90 tab 10/16/17 01/22/18 Rx azathioprine 50 mg tablet 100 mg PO BID #360 tab 10/23/17 01/22/18 Rx divalproex ER 500 mg 500 mg PO QDAY #90 tab 10/23/17 01/22/18 Rx tablet,extended release 24 hr methenamine 81 mg-m.blue 10.8 1 tab PO TID #270 tab 10/23/17 01/22/18 Rx mg-sod phos 40.8 mg-p.salicy-hyos tablet amiodarone 200 mg tablet 200 mg PO QDAY #90 tab 11/10/17 01/22/18 Rx potassium chloride ER 10 mEq 10 meq PO QDAY PRN #90 cap 12/30/17 01/22/18 Rx capsule,extended release hydrocodone 7.5 mg-acetaminophen 0.5 tab PO Q4-6H PRN #10 tab 01/21/18 01/22/18 Rx 325 mg tablet Allergies/Adverse Reactions: Allergies 3 Allergy/AdvReac Type Severity Reaction Status Date / Time codeine [Codeine] Allergy Intermediate VOMITING Verified 01/22/18 06:28 trimethobenzamide HCl Allergy Intermediate jaw locking Verified 01/22/18 06:28 [From Tigan] morphine AdvReac Mild NOT Verified 01/22/18 06:28 APPLICABLE Review of Systems - Review of Systems All Systems: Reviewed & No Additional Complaints Except as Stated - Constitutional Constitutional: DENIES: Negative System Review, General Health Excellent, General Health Good, General Health Fair, General Health Poor, Weight Loss, Weight Gain, Weight Change Intentional, Fever / Chills, Night Sweats, Fatigue, Diffuse Arthralgias, Diffuse Myalgias, Malaise, Weakness, Recent Illness, Other , See HPI - Respiratory Respiratory: DENIES: Negative System Review, Cough, Sputum, Dyspnea At Rest, Dyspnea with Exertion, Pleuritic Pain, Hemoptysis, Wheezing, Other, See HPI - Cardiovascular Cardiovascular: DENIES: Negative System Review, Chest Pain, Edema, Syncope, Palpitations, Orthopnea, Paroxysmal Nocturnal Dyspnea, Other, See HPI - Gastrointestinal Gastrointestinal / Abdominal: DENIES: Negative System Review, Nausea, Vomiting, Diarrhea, Constipation, Abdominal Pain, Bloody Stool, Poor Appetite, Heartburn, Regurgitation, Bloating, Lactose Intolerance, Melena, Bright Red Blood per Rectum, Other, See HPI - Genitourinary Genitourinary: DENIES: Negative System Review, Pain, Burning, Hematuria, Incontinence, Urgency, Hesitant Stream, Decreased Stream, Nocutria, Discharge, Sexual Dysfunction, Other, See HPI Exam - Vitals Vital Signs: Vital Signs Temperature 97.6 F Temperature Source Oral Pulse Rate [Pulse Oximeter] 62 Pulse Rate 65 Respiratory Rate 16 Blood Pressure [Right Arm] 145/72 Blood Pressure 138/75 Pulse Ox 100 Oxygen Flow Rate 2 Oxygen Delivery Method Nasal Cannula Height 5 ft 5 in Weight 130 lb - General General Appearance: No Acute Distress, Cooperative - Respiratory Respiratory Exam: POSITIVE: Clear to Auscultation - Bilaterally, Breathing Non Labored, Normal To Percussion, Normal to Percussion and Palpation - Cardiovascular Cardiovascular Exam: POSITIVE: RRR, No Murmur, No Clicks, No Gallops, No Rubs, PMI Non-Displaced - GI/Abdominal GI/Abdominal Exam: POSITIVE: Normal Bowel Sounds, Non Tender, Non Distended, Soft, No Masses, No Hepatomegaly, No Splenomegaly, No Organomegaly - Extremities Extremities Exam: POSITIVE: No Clubbing Present, No Edema Present - Neurological Neurological Exam: POSITIVE: Alert, Oriented x 3, Reflexes Normal, Normal Gait, CN II-XII Intact, No Facial Droop, Speech Intact / Clear, Moves All Extremities Equally, No Fasciculations, No Clonus Assessment and Plan - Patient Problems (1) Hallux abducto valgus Current Visit: Yes Status: Acute Comment: Status post the surgery admitted for 2 more doses of IV antibiotics this was not possible for them at home patient will be discharged after midnight after her second dose her daughter will come and pick her up Code(s): M20.10 - Hallux valgus (acquired), unspecified foot
[2018-01-22] MEDS ORDERED: DIVALPROEX SODIUM 500 MG PO SCH (12:00)
[2018-01-22] MEDS ORDERED: DULOXETINE 30 MG PO SCH (12:00)
--- NOTE | 2018-01-22 12:15 | DCSUMMARY ---
Hospitalization Summary Hospital Course: Please see my same-day admit and discharge note Exam - Vitals Vital Signs: Vital Signs Temperature 97.6 F Temperature Source Oral Pulse Rate [Pulse Oximeter] 62 Pulse Rate 65 Respiratory Rate 16 Blood Pressure [Right Arm] 145/72 Blood Pressure 138/75 Pulse Ox 100 Oxygen Flow Rate 2 Oxygen Delivery Method Nasal Cannula Height 5 ft 5 in Weight 130 lb Patient Problems - Patient Problem List (1) Hallux abducto valgus Current Visit: Yes Status: Acute Code(s): M20.10 - Hallux valgus (acquired) , unspecified foot Category: Medical
--- NOTE | 2018-01-22 12:34 | DI ---
XR FOOT COMPLETE MIN 3VW,01/22/2018 9:16 AM: Clinical History: Right hallux valgus Previous Exam: October 15, 2017 Findings: 3 views of the right foot are obtained, and demonstrate mild diffuse osteopenia. There is stable lag screw fixation of the subtalar joints. There is screw and plate fixation of the midfoot as well. There is partial amputation of the second distal digit. Patient is status post new amputation of the proximal right first phalanx. Surrounding soft tissues are unremarkable. Impression: New postsurgical changes consistent with amputation of the proximal right first phalanx.
[2018-01-22] MEDS: ACYCLOVIR 400 MG PO SCH ×2 (13:43→20:08)
[2018-01-22] MEDS: [UNRECOGNIZED DRUG - OTHER] PO SCH ×2 (14:57→20:08)
[2018-01-22] MEDS ORDERED: GABAPENTIN 300 MG PO SCH ×2 (15:00→21:00)
[2018-01-22] MEDS ORDERED: CEPHALEXIN 500 MG CAPSULE PO SCH (15:00)
[2018-01-22 15:01] VITALS: RESP 20
[2018-01-22] MEDS: cefTAZidime Inj 2 GM in Sodium Chloride 0.9% 100 ML IV SCH ×2 (16:15→23:35)
[2018-01-22] MEDS ORDERED: OXYBUTYNIN 5 MG PO SCH (18:00)
[2018-01-22] MEDS ORDERED: FLUTICASONE PROPIONATE 220 MCG INH SCH (19:00)
[2018-01-22 20:08] VITALS: BP 129/79; TEMP 98.4; O2SAT 94
[2018-01-22] MEDS ORDERED: VIT D PO SCH (21:00)
[2018-01-22] MEDS ORDERED: AZATHIOPRINE 100 MG PO SCH (21:00)
[2018-01-22] MEDS ORDERED: OMEPRAZOLE 40 MG PO SCH (21:00)
[2018-01-22] MEDS ORDERED: INULIN PO SCH (21:00)
[2018-01-22] MEDS ORDERED: ALOE VERA PO SCH (21:00)
[2018-01-22] MEDS ORDERED: POTASSIUM CHLORIDE 10 MEQ PO SCH (21:00)
[2018-01-22] MEDS ORDERED: CALCIUM PO SCH (21:00)
[2018-01-22] MEDS ORDERED: MEMANTINE 10 MG PO SCH (21:00)
[2018-01-23] MEDS ORDERED: DULOXETINE 30 MG PO SCH (09:00)
[2018-01-23] MEDS ORDERED: VITAMIN B COMPLEX PO SCH (09:00)
[2018-01-23] MEDS ORDERED: AMIODARONE 200 MG PO SCH (09:00)
[2018-01-23] MEDS ORDERED: ASPIRIN EC 81 MG TABLET PO SCH (09:00)
== END 2018-01-22 23:58 | disposition home or self-care (01) ==
LOC: OR 06:00 → MED/SURG 06:00
PROVIDERS: ADMIT Internal Medicine; ATTEND Internal Medicine